=== PATIENT | female | born 2000 | race African-American/Black ===

== ENCOUNTER 2020-10-09 15:14 | Inpatient (IN) ==
[2020-10-09] MEDS ORDERED: methylPREDNISolone SOD SUC 125 MG/2 ML VIAL IV SCH (19:00)
[2020-10-09 19:01] LABS: Albumin 3.9 G/DL (3.4-5.0); Bilirubin,Total 0.6 MG/DL (0.2-1.0); Calcium 8.8 MG/DL (8.5-10.1); Potassium 4.3 MMOL/L (3.5-5.1); Total Protein 8.2 G/DL (5.0-7.5)
[2020-10-09 19:06] LABS: Basophils # 0.1 10*3/uL (0.0-0.2); Basophils % 0.6 % (0.0-0.8); Eosinophils # 0.1 10*3/uL (0.0-0.87); Eosinophils % 1.1 % (0.00-10.9); Hematocrit 47.6 VOL% (35.7-47.0); Hemoglobin 14.8 GM/DL (12.0-16.0); Immature Granulocytes % 0.7 %; Immature Granulocytes Absolute 0.06 #; Lymphocytes # 2.7 10*3/uL (1.4-4.0); Lymphocytes % 32.5 % (21.3-54.2); Mean Corpuscular HGB Conc 31.1 GM/DL (32-36); Monocytes % 7.2 % (1.7-12.7); Neutrophils % 57.9 % (38.7-73.9); Platelet Count 201 T/CUMM (130-400); Red Blood Count 5.41 MC/CUMM (3.8-5.5); Red Cell Distribution Width 14.3 % (9.3-17.3); White Blood Count 8.3 T/CUMM (4-12)
[2020-10-09 20:21] LABS: Sedimentation Rate-Westergren 2 MM/HR (0-20)
[2020-10-09] MEDS ORDERED: hydrALAZINE 20 MG/1 ML VIAL IV PRN (20:43)
[2020-10-09] MEDS ORDERED: ONDANSETRON 4 MG/2 ML VIAL IV PRN (20:43)
[2020-10-09] MEDS ORDERED: GLUCAGON 1 MG VIAL IM PRN (20:43)
[2020-10-09] MEDS ORDERED: DEXTROSE 50% 25 GM/50 ML VIAL IV PRN (20:43)
[2020-10-09] MEDS ORDERED: ACETAMINOPHEN 325 MG TABLET PO PRN (20:43)
[2020-10-09] MEDS ORDERED: DOCUSATE SODIUM 100 MG CAPSULE PO PRN (20:43)
[2020-10-09] MEDS ORDERED: CALCIUM CARBONATE CHEW 500 MG TABLET PO PRN (20:43)
[2020-10-09] MEDS: INSULIN REGULAR 100 UNIT/ML SUBCUT SCH (22:28)
[2020-10-09] MEDS: METHYLPREDNISOLONE SOD SUC IV SCH (22:31)
[2020-10-09] MEDS: SODIUM CHLORIDE 0.9% IV SCH (22:31)
[2020-10-09] MEDS: PANTOPRAZOLE 40 MG VIAL IV SCH (22:32)
[2020-10-10] MEDS: METHYLPREDNISOLONE SOD SUC IV SCH ×3 (03:07→22:21)
[2020-10-10] MEDS: SODIUM CHLORIDE 0.9% IV SCH ×3 (03:07→22:21)
[2020-10-10 05:07] LABS: Basophils % 0.3 % (0.0-0.8); Eosinophils % 0.2 % (0.00-10.9); Hematocrit 46.2 VOL% (35.7-47.0); Hemoglobin 14.2 GM/DL (12.0-16.0); Immature Granulocytes % 0.5 %; Immature Granulocytes Absolute 0.03 #; Lymphocytes # 0.7 10*3/uL (1.4-4.0); Lymphocytes % 10.4 % (21.3-54.2); Mean Corpuscular HGB Conc 30.7 GM/DL (32-36); Mean Corpuscular Volume 87.5 FL (87-102); Mean Platelet Volume 10.6 FL (9.6-12.0); Monocytes % 0.9 % (1.7-12.7); Neutrophils % 87.7 % (38.7-73.9); Platelet Count 215 T/CUMM (130-400); Red Blood Count 5.28 MC/CUMM (3.8-5.5); Red Cell Distribution Width 14.2 % (9.3-17.3); White Blood Count 6.5 T/CUMM (4-12)
[2020-10-10] MEDS: INSULIN REGULAR 100 UNIT/ML SUBCUT SCH ×2 (09:04→13:04)
[2020-10-10] MEDS: ENOXAPARIN 40 MG/0.4 ML SYRINGE SUBCUT SCH (09:06)
[2020-10-10] MEDS: PANTOPRAZOLE 40 MG VIAL IV SCH (09:09)
[2020-10-10] MEDS: PANTOPRAZOLE 40 MG TABLET PO SCH (22:23)
[2020-10-11] MEDS: METHYLPREDNISOLONE SOD SUC IV SCH ×3 (03:17→17:09)
[2020-10-11] MEDS: SODIUM CHLORIDE 0.9% IV SCH ×3 (03:17→17:09)
[2020-10-11 06:07] LABS: Basophils % 0.2 % (0.0-0.8); Hematocrit 45.1 VOL% (35.7-47.0); Hemoglobin 14.4 GM/DL (12.0-16.0); Immature Granulocytes % 0.9 %; Immature Granulocytes Absolute 0.16 #; Lymphocytes # 1.3 10*3/uL (1.4-4.0); Lymphocytes % 7.4 % (21.3-54.2); Mean Corpuscular HGB Conc 31.9 GM/DL (32-36); Mean Corpuscular Volume 87.2 FL (87-102); Mean Platelet Volume 11.5 FL (9.6-12.0); Monocytes % 1.7 % (1.7-12.7); Neutrophils % 89.8 % (38.7-73.9); Platelet Count 227 T/CUMM (130-400); Red Blood Count 5.17 MC/CUMM (3.8-5.5); Red Cell Distribution Width 14.4 % (9.3-17.3); White Blood Count 17.5 T/CUMM (4-12)
[2020-10-11 06:42] LABS: Calcium 8.9 MG/DL (8.5-10.1); Potassium 4.1 MMOL/L (3.5-5.1)
[2020-10-11] MEDS: ENOXAPARIN 40 MG/0.4 ML SYRINGE SUBCUT SCH (09:44)
[2020-10-11] MEDS: PANTOPRAZOLE 40 MG TABLET PO SCH ×2 (09:44→21:27)
[2020-10-11] MEDS: predniSONE 10 MG TABLET PO SCH (21:27)
[2020-10-12 06:11] LABS: Basophils % 0.1 % (0.0-0.8); Hematocrit 42.4 VOL% (35.7-47.0); Hemoglobin 13.5 GM/DL (12.0-16.0); Immature Granulocytes % 1.3 %; Immature Granulocytes Absolute 0.22 #; Lymphocytes # 1.3 10*3/uL (1.4-4.0); Lymphocytes % 7.3 % (21.3-54.2); Mean Corpuscular HGB Conc 31.8 GM/DL (32-36); Mean Platelet Volume 11.4 FL (9.6-12.0); Monocytes % 3.9 % (1.7-12.7); Neutrophils % 87.4 % (38.7-73.9); Platelet Count 230 T/CUMM (130-400); Red Blood Count 4.82 MC/CUMM (3.8-5.5); Red Cell Distribution Width 14.5 % (9.3-17.3); White Blood Count 17.4 T/CUMM (4-12)
[2020-10-12 06:30] LABS: Calcium 8.8 MG/DL (8.5-10.1); Osmolality,Calculated 281.3 MOS/KG (273-304)
[2020-10-12] MEDS: predniSONE 10 MG TABLET PO SCH (08:33)
[2020-10-12] MEDS: PANTOPRAZOLE 40 MG TABLET PO SCH (08:33)
[2020-10-12] MEDS: ENOXAPARIN 40 MG/0.4 ML SYRINGE SUBCUT SCH (08:34)
[2020-10-12 11:47] VITALS: BP 120/66
== END 2020-10-12 12:35 | disposition home or self-care (01) | DRG 123 ==
LOC: N.ED 15:14 → SUATTDRO 18:50 → N.EDINP 18:50 → N.4E 19:37
PROVIDERS: ADMIT Hospitalist; ATTEND Internal Medicine